=== PATIENT | female | born 1940 | race African-American/Black ===

== ENCOUNTER 2019-01-10 19:15 | Emergency (ER) | payer OTHER ==
[~2019-01-10] VITALS: Ht 157.5 cm; Wt 90.7 kg
[2019-01-10 19:35] VITALS: BP 157/98
--- NOTE | 2019-01-10 19:43 | NUR ---
EKG DONE IN TRIAGE. PT AMBULATED TO LOBBY.
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
[2019-01-10] MEDS ORDERED: KETOROLAC 60 MG/2 ML VIAL IM ONE (20:45)
--- NOTE | 2019-01-10 21:20 | NUR ---
REPORT GIVEN TO PM NURSE. PT STABLE. PT TAKEN TO RADIOLOGY .
[2019-01-10] MEDS ORDERED: traMADol 50 MG TAB PO ONE (21:40)
[2019-01-10 21:52] VITALS: BP 132/86
--- NOTE | 2019-01-10 21:52 | NUR ---
Patient discharged with v/s stable. Written and verbal after care instructions given and explained. Patient alert, oriented and verbalized understanding of instructions. Ambulatory with to car. All questions addressed prior to discharge. ID band removed. Patient advised to follow up with PMD. Rx of MOTRIN 800MG; TRAMADOL HYDROCHLORIDE 50MG. given. Patient educated on indication of medication including possible reaction and side effects. Opportunity to ask questions provided and answered.
== END 2019-01-10 21:52 | disposition home or self-care (01) ==
LOC: MED 19:15
DX: S20.20XA Contusion of thorax, unspecified, initial encounter (principal); E11.9 Type 2 diabetes mellitus without complications; Z88.0 Allergy status to penicillin; V89.2XXA Person injured in unspecified motor-vehicle accident, traffic, initial encounter; Y93.89 Activity, other specified; Y92.89 Other specified places as the place of occurrence of the external cause; Y99.8 Other external cause status
CPT/HCPCS: 71045; 71100; 93005; 96372; 99283; J1885